=== PATIENT | female | born 1935 | race Caucasian/White ===

== ENCOUNTER 2018-03-17 18:03 | Emergency (ER) | payer MEDICARE, MEDICAID ==
--- NOTE | 2018-03-17 19:27 | CT ---
CT BRAIN: HISTORY: An 82-year-old who presents with a history of dementia. COMPARISON: 12/05/2016 TECHNIQUE: Noncontrast enhanced CT images of the brain are obtained on 03/17/2018. 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 Cortical atrophy and deep white matter ischemic change is seen. No evidence of acute intracranial masses, hemorrhages, or strokes is seen. The ventricles are or nor mal size, considering the degree of atrophy. IMPRESSION: No evidence of acute intracranial masses or lesions seen. POS: LE
--- NOTE | 2018-03-17 19:30 | CT ---
CT PELVIS WITHOUT CONTRAST: INDICATIONS: Ground level fall with left pain. FINDINGS: There is diffuse osteopenia. There is mild scattered degenerative and osteoarthritic change. No acu te fracture or subluxation is evident. There is a mild amount of retained stool within the visualize d colon. There are scattered vascular calcifications involving the soft tissues. No free fluid is e vident. IMPRESSION: No acute fracture demonstrated. POS: BH
--- NOTE | 2018-03-17 19:37 | CT ---
CT CERVICAL SPINE: HISTORY: Fall with neck pain. The patient has a history of dementia. TECHNIQUE: Axial images are obtained with coronal and sagittal reconstructions. FINDINGS: CT images of the cervical spine demonstrate no evidence of acute cervical spine fractures. The verte brae are of normal alignment. No evidence of vertebral or posterior element fractures or bony lesion s seen. Mild disk space height loss and anterior and posterior osteophytes seen at C3-C4. Bilateral distal common carotid artery calcifications seen, more prominent on the left than on the ri ght. Bilateral apical lung parenchymal scarring is seen, also noted on the patient's previous comparison C T of the cervical spine. Also noted is extensive vascular calcification in the left proximal subclavian artery. Previously no [place] C2 vertebral bone island is seen and is stable. IMPRESSION: No evidence of acute cervical spine abnormalities seen. POS: LE
[2018-03-17 20:12] LABS: Hemoglobin 13.1 g/dL (12.0-16.0); Mean Corpuscular HGB CONC 31.6 g/dL (32.0-36.0); Mean Corpuscular Hemoglobin 31.6 pg (27.0-31.0); Mean Platelet Volume 8.8 fL (7.4-10.4); Platelet Count 300 thou/uL (130-400); RBC Distribution Width 11.7 % (11.5-14.5); Red Blood Cell (RBC) Count 4.15 mill/uL (4.20-5.40); White Blood Cell (WBC) Count 6.2 thou/uL (4.8-10.8)
[2018-03-17 20:29] LABS: ALT (SGPT) 21 U/L (8-55); AST (SGOT) 19 U/L (5-34); Albumin 3.6 g/dL (3.4-4.8); Alkaline Phosphatase 98 U/L (40-150); Anion Gap 11 mmol/L (10-20); BUN (Urea Nitrogen) 22 mg/dL (9.8-20.1); Bilirubin, Total 0.3 mg/dL (0.2-1.2); CK (CPK) 119 U/L (29-168); Calc. Creatinine Clearance 0 mL/min (70-130); Calcium 9.3 mg/dL (7.8-10.44); Carbon Dioxide 24 mmol/L (23-31); Chloride 111 mmol/L (98-107); Estimated GFR-MDRD 74; Globulin 2.8 g/dL (2.4-3.5); Glucose 99 mg/dL (83-110); Potassium 4.9 mmol/L (3.5-5.1); Protein, Total 6.4 g/dL (6.0-8.3); Sodium 141 mmol/L (136-145)
[2018-03-17 20:30] LABS: Band 4 % (5-11); Lymphocytes 48 % (21-51); MDiff Complete? YES; Monocytes 3 % (0-10); Neutrophil 44 % (42-75); PLT Morphology Comment Appears Adequate; Reactive Lymphocytes 1 % (0-10)
[2018-03-17 21:23] LABS: Bilirubin Negative (Negative); Blood, Urine Negative (Negative); Clarity CLEAR (Clear); Glucose, Urine (Dipstick) Negative (Negative); Leukocyte Moderate (Negative); Nitrite Positive (Negative); Protein, Urine (Dipstick) Negative (Neg-Trace); Specific Gravity, Urine 1.008 (1.002-1.036)
[2018-03-17 21:25] LABS: Bacteria/HPF 4+ HPF (None Seen); Hyaline Casts/LPF 0-3 HYALINE CAST LPF (0-3 Hyaline); RBC/HPF 0-3 HPF (0-3); Squamous Epithelial 0-3 HPF (0-3)
[2018-03-17] MEDS ORDERED: cefTRIAXone\\ROCEPHIN 1 GM VIAL ONE (21:38)
== END 2018-03-17 23:21 | disposition home or self-care (01) ==
LOC: ERS 18:03
DX: N39.0 Urinary tract infection, site not specified (principal); F03.90 Unspecified dementia, unspecified severity, without behavioral disturbance, psychotic disturbance, mood disturbance, and anxiety; Z79.82 Long term (current) use of aspirin; Z79.899 Other long term (current) drug therapy
CPT/HCPCS: 36415; 51701; 70450; 72125; 72192; 80053; 81003; 81015; 82550; 84484; 85025; 96365; A4353; J0696